=== PATIENT | female | born 1960 | race Caucasian/White ===

== ENCOUNTER 2017-02-14 00:01 | Emergency (ER) | payer MEDICAID ==
[~2017-02-14] VITALS: Ht 172.7 cm; Wt 86.4 kg
[~2017-02-14 00:01] MED LIST: ASPI-611 PO; ATOR10TA70 PO; CARV3.122 PO; CLIN-80 PO; CYCL-1 PO; FLO0.4C PO; HYDR-3972 PO; PANT40TA4 PO
[2017-02-14 00:03] VITALS: BP 151/95
== END 2017-02-14 01:46 | disposition left against medical advice (07) ==
LOC: ER 00:01
DX: M79.671 Pain in right foot (principal); Z53.21 Procedure and treatment not carried out due to patient leaving prior to being seen by health care provider

== ENCOUNTER 2017-02-16 17:33 | Emergency (ER) | payer MEDICAID ==
[~2017-02-16] VITALS: Ht 170.2 cm; Wt 84.0 kg
[2017-02-16] MEDS ORDERED: BUPIVAcaine/PF 2.5 mg/ml (0.25%) 30ml vial IJ ONE (17:40)
[2017-02-16] MEDS ORDERED: CLIN-80 PO (17:47)
[2017-02-16 17:56] VITALS: BP 125/79
== END 2017-02-16 18:07 | disposition home or self-care (01) ==
LOC: ER 17:33
DX: L08.9 Local infection of the skin and subcutaneous tissue, unspecified (principal); B95.8 Unspecified staphylococcus as the cause of diseases classified elsewhere; I25.10 Atherosclerotic heart disease of native coronary artery without angina pectoris; I25.2 Old myocardial infarction; G89.29 Other chronic pain; F12.10 Cannabis abuse, uncomplicated; Z88.2 Allergy status to sulfonamides; Z79.2 Long term (current) use of antibiotics; Z79.899 Other long term (current) drug therapy; Z79.82 Long term (current) use of aspirin
CPT/HCPCS: 99283

== ENCOUNTER 2017-06-06 20:47 | Emergency (ER) | payer MEDICAID ==
[~2017-06-06] VITALS: Ht 172.7 cm; Wt 81.8 kg
[2017-06-06] MEDS ORDERED: ipratropium/albuterol 3ml nebule NEB ONE (21:50)
[2017-06-06 22:00] LABS: BASOPHILS % (AUTO) 0.3 % (0-1); EOSINOPHILS # (AUTO) 0.3 X10'3 (0-0.9); EOSINOPHILS % (AUTO) 2.8 % (0-6); HEMATOCRIT 44.8 % (35.0-45.0); HEMOGLOBIN 15.2 g/dl (12.0-16.0); LYMPHOCYTES # (AUTO) 2.8 X10'3 (1.1-4.8); LYMPHOCYTES % (AUTO) 30.8 % (21-51); MEAN CORPUSCULAR HEMOGLOBIN 30.4 PG (27.0-31.0); MEAN CORPUSCULAR VOLUME 89.5 FL (78-98); MEAN PLATELET VOLUME 7.5 FL (7.4-10.4); MONOCYTES # (AUTO) 0.6 X10'3 (0-0.9); MONOCYTES % (AUTO) 6.4 % (2-12); NEUTROPHILS # (AUTO) 5.5 X10'3 (1.8-7.7); NEUTROPHILS % (AUTO) 59.7 % (42-75); PLATELET COUNT 288 X10'3 (140-440); RED CELL DISTRIBUTION WIDTH 15.5 % (11.5-14.5); WHITE BLOOD COUNT 9.2 X10'3 (4.5-11.0)
[2017-06-06 22:06] LABS: PARTIAL THROMBOPLASTIN TIME 27 SECONDS (22-32); PROTHROMBIN TIME 10.4 SECONDS (9.0-12.0)
[2017-06-06 22:24] LABS: ALANINE AMINOTRANSFERASE 26 U/L (12-78); ALBUMIN 3.2 G/DL (3.4-5.0); ALBUMIN/GLOBULIN RATIO 0.7 (1.1-1.5); ALKALINE PHOSPHATASE 120 IU/L (46-116); ANION GAP 12 (8-16); ASPARTATE AMINO TRANSFERASE 22 U/L (10-37); BILIRUBIN,TOTAL 0.4 MG/DL (0.1-1.0); BLOOD UREA NITROGEN 11 MG/DL (7-18); BUN/CREATININE RATIO 13.4 (6.6-38.0); CALCIUM 8.7 MG/DL (8.5-10.1); CHLORIDE 105 MMOL/L (99-107); CREATININE 0.82 MG/DL (0.40-0.90); POTASSIUM 3.5 MMOL/L (3.5-5.1); SODIUM 141 MMOL/L (135-145); TOTAL CARBON DIOXIDE 24.3 MMOL/L (24-32); TOTAL PROTEIN 7.6 G/DL (6.4-8.2); eGFR 72 ML/MIN
[2017-06-06 22:28] LABS: GLUCOSE 138 MG/DL (70-104)
[2017-06-06] MEDS ORDERED: ALBU18HF2 INH (23:04)
[2017-06-06] MEDS ORDERED: PRED50TA PO (23:04)
[2017-06-06] MEDS ORDERED: DEXT15LI29 PO (23:04)
[2017-06-06] MEDS ORDERED: AZIT-57 PO (23:04)
[2017-06-06] MEDS ORDERED: NAPR-56 PO (23:04)
[2017-06-06 23:10] VITALS: BP 117/63
== END 2017-06-06 23:11 | disposition home or self-care (01) ==
LOC: ER 20:48
DX: J44.1 Chronic obstructive pulmonary disease with (acute) exacerbation (principal); I25.10 Atherosclerotic heart disease of native coronary artery without angina pectoris; I25.2 Old myocardial infarction; G89.29 Other chronic pain; F17.210 Nicotine dependence, cigarettes, uncomplicated; F12.10 Cannabis abuse, uncomplicated; Z98.890 Other specified postprocedural states; Z88.2 Allergy status to sulfonamides; Z79.82 Long term (current) use of aspirin; Z79.899 Other long term (current) drug therapy; Z56.0 Unemployment, unspecified
CPT/HCPCS: 36415; 71045; 80053; 84484; 85025; 85610; 85730; 93005; 94640; 94760; 99285

== ENCOUNTER 2018-10-21 00:10 | Emergency (ER) | payer MEDICAID ==
[~2018-10-21] VITALS: Ht 172.7 cm; Wt 91.1 kg
[~2018-10-21 00:10] MED LIST changes: +ALBU18HF2 INH; -CLIN-80 PO; +CLIN-96 PO; +DEXT15LI29 PO; +PRED50TA PO
[2018-10-21 00:19] VITALS: BP 137/68
[2018-10-21] MEDS ORDERED: TETanus/Pertussis (Acell)/Diphther VAC/PF (Tdap-Adult) 0.5ml syringe IM ONE (00:55)
== END 2018-10-21 01:16 | disposition home or self-care (01) ==
LOC: ER 00:10
DX: S91.332A Puncture wound without foreign body, left foot, initial encounter (principal); I25.10 Atherosclerotic heart disease of native coronary artery without angina pectoris; I25.2 Old myocardial infarction; G89.29 Other chronic pain; F12.90 Cannabis use, unspecified, uncomplicated; Z86.14 Personal history of Methicillin resistant Staphylococcus aureus infection; Z98.890 Other specified postprocedural states; Z56.0 Unemployment, unspecified; Z88.2 Allergy status to sulfonamides; Z79.82 Long term (current) use of aspirin; Z79.899 Other long term (current) drug therapy; W22.8XXA Striking against or struck by other objects, initial encounter; Y93.89 Activity, other specified; Y92.89 Other specified places as the place of occurrence of the external cause; Y99.8 Other external cause status
CPT/HCPCS: 90471; 99283

== ENCOUNTER 2019-08-30 06:20 | Emergency (ER) | payer MEDICAID ==
[~2019-08-30] VITALS: Ht 170.2 cm; Wt 90.6 kg
[~2019-08-30 06:20] MED LIST changes: -CLIN-96 PO; +CLIN-97 PO
[2019-08-30 06:48] VITALS: BP 119/67
== END 2019-08-30 08:24 | disposition home or self-care (01) ==
LOC: ER 06:20
DX: M25.572 Pain in left ankle and joints of left foot (principal); I25.10 Atherosclerotic heart disease of native coronary artery without angina pectoris; I25.2 Old myocardial infarction; G89.29 Other chronic pain; F17.210 Nicotine dependence, cigarettes, uncomplicated; F12.90 Cannabis use, unspecified, uncomplicated; Z86.14 Personal history of Methicillin resistant Staphylococcus aureus infection; Z85.9 Personal history of malignant neoplasm, unspecified; Z98.890 Other specified postprocedural states; Z56.0 Unemployment, unspecified; Z88.2 Allergy status to sulfonamides; Z79.82 Long term (current) use of aspirin; Z79.2 Long term (current) use of antibiotics; Z79.899 Other long term (current) drug therapy
CPT/HCPCS: 73600; 99284

== ENCOUNTER 2019-10-08 18:35 | Emergency (ER) | payer MEDICAID ==
[~2019-10-08] VITALS: Ht 170.2 cm; Wt 89.5 kg
[2019-10-08 18:36] VITALS: BP 121/70
[2019-10-08] MEDS ORDERED: ondansetron 4mg rapidly disintigrating tab PO ONE (18:50)
[2019-10-08] MEDS ORDERED: HYDROcodone/acetaminophen 5mg/325mg tablet PO ONE (18:50)
[2019-10-08] MEDS ORDERED: ONDA4TAB6 PO (19:10)
[2019-10-08] MEDS ORDERED: HYDR-4383 PO (19:10)
== END 2019-10-08 19:28 | disposition home or self-care (01) ==
LOC: ER 18:36
DX: M79.672 Pain in left foot (principal); I25.10 Atherosclerotic heart disease of native coronary artery without angina pectoris; I25.2 Old myocardial infarction; G89.29 Other chronic pain; F12.90 Cannabis use, unspecified, uncomplicated; Z86.14 Personal history of Methicillin resistant Staphylococcus aureus infection; Z98.890 Other specified postprocedural states; Z56.0 Unemployment, unspecified; Z88.2 Allergy status to sulfonamides; Z79.82 Long term (current) use of aspirin; Z79.899 Other long term (current) drug therapy
CPT/HCPCS: 73610; 73630; 99284

== ENCOUNTER 2020-04-28 19:59 | Emergency (ER) | payer MEDICAID ==
[~2020-04-28] VITALS: Ht 170.2 cm; Wt 92.3 kg
[~2020-04-28 19:59] MED LIST changes: +DEXT15LI PO; -DEXT15LI29 PO; +HYDR-4383 PO; +ONDA4TAB6 PO; -PANT40TA4 PO; +PANT40TA54 PO
[2020-04-28 20:31] VITALS: BP 118/74
[2020-04-28] MEDS ORDERED: diphenhydrAMINE 25mg capsule PO ONE (22:15)
== END 2020-04-28 22:43 | disposition home or self-care (01) ==
LOC: ER 20:00
DX: S41.102A Unspecified open wound of left upper arm, initial encounter (principal); I25.10 Atherosclerotic heart disease of native coronary artery without angina pectoris; I25.2 Old myocardial infarction; G89.29 Other chronic pain; F12.90 Cannabis use, unspecified, uncomplicated; Z86.14 Personal history of Methicillin resistant Staphylococcus aureus infection; Z85.9 Personal history of malignant neoplasm, unspecified; Z56.0 Unemployment, unspecified; Z79.2 Long term (current) use of antibiotics; Z79.82 Long term (current) use of aspirin; Z79.899 Other long term (current) drug therapy; Z88.2 Allergy status to sulfonamides; W22.8XXA Striking against or struck by other objects, initial encounter; Y93.89 Activity, other specified; Y92.89 Other specified places as the place of occurrence of the external cause; Y99.8 Other external cause status
CPT/HCPCS: 10160; 99284; Q0163

== ENCOUNTER 2021-05-29 17:18 | Emergency (ER) | payer MEDICAID ==
[~2021-05-29] VITALS: Ht 170.2 cm; Wt 81.8 kg
[2021-05-29 17:37] VITALS: BP 111/65
[2021-05-29] MEDS ORDERED: DOXYCYCLINE 100MG CAPSULE PO STA (18:15)
[2021-05-29] MEDS ORDERED: DOXY100C76 PO (18:21)
== END 2021-05-29 18:30 | disposition home or self-care (01) ==
LOC: ER 17:19
DX: H00.014 Hordeolum externum left upper eyelid (principal); H02.844 Edema of left upper eyelid; I25.10 Atherosclerotic heart disease of native coronary artery without angina pectoris; I25.2 Old myocardial infarction; G89.29 Other chronic pain; F17.200 Nicotine dependence, unspecified, uncomplicated; Z86.14 Personal history of Methicillin resistant Staphylococcus aureus infection; Z86.19 Personal history of other infectious and parasitic diseases; Z85.9 Personal history of malignant neoplasm, unspecified; Z56.0 Unemployment, unspecified; Z98.890 Other specified postprocedural states; Z88.2 Allergy status to sulfonamides; Z79.82 Long term (current) use of aspirin; Z79.899 Other long term (current) drug therapy; Z79.2 Long term (current) use of antibiotics
CPT/HCPCS: 99283

== ENCOUNTER 2021-06-30 18:03 | Emergency (ER) | payer MEDICAID ==
[~2021-06-30] VITALS: Ht 170.2 cm; Wt 81.8 kg
[2021-06-30 18:04] VITALS: BP 137/70
[2021-06-30] MEDS ORDERED: PRED20TA PO (18:54)
[2021-06-30] MEDS ORDERED: GUAI120L55 PO (18:54)
[2021-06-30] MEDS ORDERED: AMOX-117 PO (18:54)
[2021-06-30] MEDS ORDERED: amox tr/potassium clavulanate 875/125mg TAB PO ONE (18:55)
[2021-06-30] MEDS ORDERED: predniSONE 20 mg tablet PO ONE (18:55)
== END 2021-06-30 19:17 | disposition home or self-care (01) ==
LOC: ER 18:04
DX: J20.9 Acute bronchitis, unspecified (principal); I25.10 Atherosclerotic heart disease of native coronary artery without angina pectoris; I25.2 Old myocardial infarction; F17.200 Nicotine dependence, unspecified, uncomplicated; F12.90 Cannabis use, unspecified, uncomplicated; Z86.14 Personal history of Methicillin resistant Staphylococcus aureus infection; Z85.9 Personal history of malignant neoplasm, unspecified; Z56.0 Unemployment, unspecified; Z88.6 Allergy status to analgesic agent; Z79.82 Long term (current) use of aspirin; Z79.2 Long term (current) use of antibiotics; Z79.899 Other long term (current) drug therapy
CPT/HCPCS: 99283; J7512

== ENCOUNTER 2022-04-17 19:47 | Emergency (ER) | payer MEDICAID ==
[~2022-04-17] VITALS: Ht 170.2 cm; Wt 81.8 kg
[~2022-04-17 19:47] MED LIST changes: +GUAI120L55 PO
[2022-04-17 20:10] VITALS: BP 129/81
[2022-04-17 20:50] LABS: BASOPHILS % (AUTO) 0.3 % (0-1); EOSINOPHILS # (AUTO) 0.1 X10'3 (0-0.9); EOSINOPHILS % (AUTO) 0.8 % (0-6); HEMATOCRIT 51.5 % (35.0-45.0); HEMOGLOBIN 17.1 g/dl (12.0-16.0); LYMPHOCYTES # (AUTO) 1.6 X10'3 (1.1-4.8); LYMPHOCYTES % (AUTO) 15.3 % (21-51); MEAN CORPUSCULAR HEMOGLOBIN 30.3 PG (27.0-31.0); MEAN CORPUSCULAR HGB CONC 33.2 g/dL (33.0-36.5); MEAN CORPUSCULAR VOLUME 91.2 FL (78-98); MEAN PLATELET VOLUME 7.4 FL (7.4-10.4); MONOCYTES # (AUTO) 0.5 X10'3 (0-0.9); MONOCYTES % (AUTO) 5.2 % (2-12); NEUTROPHILS # (AUTO) 8.1 X10'3 (1.8-7.7); NEUTROPHILS % (AUTO) 78.4 % (42-75); PLATELET COUNT 268 X10'3 (140-440); RED BLOOD COUNT 5.65 X10'6 (4.20-5.60); RED CELL DISTRIBUTION WIDTH 14.7 % (11.5-14.5); WHITE BLOOD COUNT 10.4 X10'3 (4.5-11.0)
[2022-04-17 21:03] LABS: ALANINE AMINOTRANSFERASE 28 U/L (12-78); ALBUMIN 3.7 G/DL (3.4-5.0); ALBUMIN/GLOBULIN RATIO 0.8 (1.1-1.5); ALKALINE PHOSPHATASE 105 IU/L (46-116); ANION GAP 8 (8-16); ASPARTATE AMINO TRANSFERASE 25 U/L (10-37); BILIRUBIN,TOTAL 0.7 MG/DL (0.1-1.0); BLOOD UREA NITROGEN 11 MG/DL (7-18); BUN/CREATININE RATIO 13.8 (6.6-38.0); CALCIUM 9.3 MG/DL (8.5-10.1); CHLORIDE 106 MMOL/L (99-107); LIPASE 521 U/L (73-393); POTASSIUM 4.1 MMOL/L (3.5-5.1); SODIUM 140 MMOL/L (135-145); TOTAL CARBON DIOXIDE 26.3 MMOL/L (24-32); TOTAL PROTEIN 8.2 G/DL (6.4-8.2); eGFR 73 ML/MIN
[2022-04-17 21:11] LABS: GLUCOSE 121 MG/DL (70-104)
== END 2022-04-18 00:38 | disposition left against medical advice (07) ==
LOC: ER 19:48
DX: R11.10 Vomiting, unspecified (principal); Z53.21 Procedure and treatment not carried out due to patient leaving prior to being seen by health care provider
CPT/HCPCS: 36415; 80053; 83690; 85025; 99281

== ENCOUNTER 2022-10-28 05:01 | Emergency (ER) | payer MEDICAID ==
[~2022-10-28] VITALS: Ht 170.2 cm; Wt 81.8 kg
[2022-10-28 05:14] VITALS: BP 157/91; PULSE 73; TEMP 97.9; O2SAT 99
[2022-10-28] MEDS ORDERED: methylPREDNISolone sod succ 125mg/2ml vial IM ONE (05:30)
[2022-10-28] MEDS ORDERED: ketorolac tromethamine 15mg/ml inj. IM ONE (05:30)
[2022-10-28] MEDS ORDERED: METH4TAB81 PO (05:30)
[2022-10-28] MEDS ORDERED: NAPR-56 PO (05:30)
[2022-10-28 07:31] VITALS: RESP 16
== END 2022-10-28 08:29 | disposition home or self-care (01) ==
LOC: ER 05:01
DX: S83.92XA Sprain of unspecified site of left knee, initial encounter (principal); M25.562 Pain in left knee; I25.10 Atherosclerotic heart disease of native coronary artery without angina pectoris; I25.2 Old myocardial infarction; G89.29 Other chronic pain; F12.90 Cannabis use, unspecified, uncomplicated; Z56.0 Unemployment, unspecified; Z79.899 Other long term (current) drug therapy; Z79.2 Long term (current) use of antibiotics; Z88.2 Allergy status to sulfonamides; Z85.048 Personal history of other malignant neoplasm of rectum, rectosigmoid junction, and anus; W18.30XA Fall on same level, unspecified, initial encounter; Z91.81 History of falling; Y93.89 Activity, other specified; Y92.89 Other specified places as the place of occurrence of the external cause; Y99.8 Other external cause status
CPT/HCPCS: 73564; 96372; 99284; J1885; J2930

== ENCOUNTER 2024-02-12 10:19 | Emergency (ER) | payer MEDICAID ==
[~2024-02-12] VITALS: Ht 170.2 cm; Wt 87.5 kg
[~2024-02-12 10:19] MED LIST changes: +METH4TAB81 PO
[2024-02-12 10:25] VITALS: BP 163/86; PULSE 79; TEMP 98.1; O2SAT 100
[2024-02-12] MEDS: ketorolac trometh 15mg/ml vial 15 MG/ML ML IM ONE (12:07)
[2024-02-12 12:13] VITALS: RESP 16
[2024-02-12] MEDS: ketorolac trometh 30MG/ML vial 30 MG/ML VIAL IM ONE (12:13)
== END 2024-02-12 12:18 | disposition home or self-care (01) ==
LOC: ER 10:19
DX: M25.562 Pain in left knee (principal); I25.10 Atherosclerotic heart disease of native coronary artery without angina pectoris; F12.90 Cannabis use, unspecified, uncomplicated; Z88.2 Allergy status to sulfonamides; Z98.890 Other specified postprocedural states; Z79.82 Long term (current) use of aspirin
CPT/HCPCS: 73564; 96372; 99283; J1885

== ENCOUNTER 2024-02-17 07:38 | Day surgery (SDC) | payer MEDICAID ==
[~2024-02-17] VITALS: Ht 170.2 cm; Wt 89.3 kg
[2024-02-17] VITALS (13 sets, daily range): BP systolic 124–161; BP diastolic 68–92; PULSE 62–76; RESP 16; TEMP 97.6; O2SAT 96–98
[2024-02-17] MEDS ORDERED: nitroGLYCERIN 0.4mg SUBLingual tab SL PRN ×2 (08:05→12:20)
[2024-02-17 08:41] LABS: HEMATOCRIT 43.4 % (35.0-45.0); HEMOGLOBIN 14.5 g/dl (12.0-16.0); MEAN CORPUSCULAR HEMOGLOBIN 30.7 PG (27.0-31.0); MEAN CORPUSCULAR HGB CONC 33.5 g/dL (33.0-36.5); MEAN CORPUSCULAR VOLUME 91.6 FL (78-98); PLATELET COUNT 297 X10'3 (140-440); RED BLOOD COUNT 4.73 X10'6 (4.20-5.60); WHITE BLOOD COUNT 6.2 X10'3 (4.5-11.0)
[2024-02-17 08:42] LABS: BASOPHILS % (AUTO) 0.6 % (0-1); EOSINOPHILS # (AUTO) 0.2 X10'3 (0-0.9); EOSINOPHILS % (AUTO) 3.6 % (0-6); LYMPHOCYTES # (AUTO) 2.3 X10'3 (1.1-4.8); LYMPHOCYTES % (AUTO) 36.5 % (21-51); MEAN PLATELET VOLUME 7.5 FL (7.4-10.4); MONOCYTES # (AUTO) 0.5 X10'3 (0-0.9); MONOCYTES % (AUTO) 8.4 % (2-12); NEUTROPHILS # (AUTO) 3.2 X10'3 (1.8-7.7); NEUTROPHILS % (AUTO) 50.9 % (42-75)
[2024-02-17 08:54] LABS: ALBUMIN 2.8 G/DL (3.4-5.0); ANION GAP 9 (8-16); BLOOD UREA NITROGEN 14 MG/DL (7-18); BUN/CREATININE RATIO 18.9 (10.0-20.0); CHLORIDE 110 MMOL/L (99-107); CREATININE 0.74 MG/DL (0.40-0.90); GLUCOSE 136 MG/DL (70-104); POTASSIUM 3.8 MMOL/L (3.5-5.1); SODIUM 144 MMOL/L (135-145); TOTAL CARBON DIOXIDE 24.8 MMOL/L (24-32); eCRCL 77 ML/MIN; eGFR 80 ML/MIN
[2024-02-17 08:58] LABS: APTT 26 SECONDS (22-32); PROTHROMBIN TIME 10.9 SECONDS (9.0-12.0)
[2024-02-17] MEDS ORDERED: NO HOME MEDS (09:00)
[2024-02-17] MEDS: diphenhydrAMINE 25mg capsule PO PRN (09:58)
[2024-02-17] MEDS: LORazepam 0.5 MG tablet PO PRN (09:58)
[2024-02-17] MEDS: normal saline 1,000 ML IV SCH (09:59)
[2024-02-17] MEDS ORDERED: iohexol 350 MG/ML 50ML vial IV ONE (10:17)
[2024-02-17] MEDS ORDERED: iohexol 350MG/ML 100ml bottle IV ONE (10:17)
[2024-02-17] MEDS ORDERED: LIDOcaine 1% 30ml preserv. free vial ONE (10:17)
[2024-02-17] MEDS ORDERED: fentaNYL/PF 50MCG/1 ML 2ML syringe ONE (10:17)
[2024-02-17] MEDS ORDERED: midazolam 1 mg/ML 2ml injection ONE (10:17)
[2024-02-17] MEDS ORDERED: normal saline 1000ml 1,000 ML IV SCH (12:15)
[2024-02-17] MEDS ORDERED: ondansetron/PF 4mg/2ml inj IV PRN (12:15)
[2024-02-17] MEDS ORDERED: HYDROcodone/acetaminophen 5mg/325mg tablet PO PRN (12:20)
[2024-02-17] MEDS ORDERED: proCHLORperazine 10 MG/2 ml inj IV PRN (12:20)
[2024-02-17] MEDS ORDERED: OXAZEpam 15mg capsule PO PRN (12:20)
[2024-02-17] MEDS: HYDROcodone/acetaminophen 10/325mg tab PO PRN (14:23)
== END 2024-02-17 18:50 | disposition home or self-care (01) ==
LOC: SSTAY O 07:38
PROVIDERS: ATTEND Internal Medicine Cardiovascular Disease
DX: R94.39 Abnormal result of other cardiovascular function study (principal); I25.10 Atherosclerotic heart disease of native coronary artery without angina pectoris; Z79.01 Long term (current) use of anticoagulants; I25.2 Old myocardial infarction
CPT/HCPCS: 36415; 71046; 80048; 85025; 85610; 85730; 93005; 93458; 99152; J1644; J2003; J2250; J3010; J7030; Q0163; Q9967; 99153; A4314; A6258; C1760

== ENCOUNTER 2024-10-28 04:53 | Emergency (ER) | payer MEDICAID ==
[~2024-10-28] VITALS: Ht 170.2 cm; Wt 75.0 kg
[~2024-10-28 04:53] MED LIST changes: -ALBU18HF2 INH; -ASPI-611 PO; -ATOR10TA70 PO; -CARV3.122 PO; -CLIN-97 PO; -CYCL-1 PO; -DEXT15LI PO; -FLO0.4C PO; -GUAI120L55 PO; -HYDR-3972 PO; -HYDR-4383 PO; -METH4TAB81 PO; +NO HOME MEDS; -ONDA4TAB6 PO; -PANT40TA54 PO; -PRED50TA PO
[2024-10-28 05:00] VITALS: BP 148/66; PULSE 82; RESP 20; TEMP 98; O2SAT 99
--- NOTE | 2024-10-28 05:18 | Physician Documentation ---
History of Present Illness ~ Chief Complaint: Leg Pain Stated Complaint: LEG PUNCTURE Time Seen by MD: 05:15 Primary Medical Doctor: Vicky hunt [facility] Patient presents to the emergency room with chief complaint of sliver in her posterior left leg. She states she stepped on a branch in his swung up and stabbed her leaving a splinter. She would not have a pair of tweezers to pull it out therefore she is here. Tetanus reported to be up-to-date Tetanus witin 5 years: Yes (2020) Medication Reconciliation Allergies: Coded Allergies: Sulfa (Sulfonamide Antibiotics) (Verified Allergy, Severe, 10/08/19) Miscellaneous Medications Home Med List (No Home Medications), (Reported) Past Medical History Past Medical History: Coronary Artery Disease, Myocardial Infarction, Chronic Pain, Cellulitis, MRSA Abscess, *CANCER* Past Surgical History: orthopedic surgeries, other Other Past Surgical History: Eye surgery Alcohol Use: None Drug Use: marijuana Lives with: Family Lives In: Home Occupation: unemployed Review of Systems ROS All review of systems negative except as per HPI Physical Exam Vital Signs: Temperature: 98.0, Heart Rate: 82, Respiratory Rate: 20, BP: 148/66, Pulse Oximetry: 99, Weight: 75.000 Oxygen Flow Rate: 0 Physical Exam General: Patient is awake, alert, oriented x4 in no acute distress and well appearing.~ Head: Normocephalic and atraumatic. Eyes: Conjunctival normal. EOMI. PERRL. ENT: Mucous membranes moist. Neck: Supple, trachea is midline. Chest: Clear to auscultation bilaterally without rales, rhonchi, or wheezes. There is no accessory muscle use or retractions. Cardiac: RRR without murmurs, gallops, or rubs. Extremities: Splinter sticking out of patient's posterior left calf. No evidence of infection Procedures Procedures Splinter removal: Status post informed verbal consent patient's wound was cleaned and forceps used to pull 0.5 cm splinter from posterior calf in its entirety. Wound care provided as well as bandage. Progress Results/Orders Results/Orders Vital Signs 10/28/24 05:00 Temp 98.0 Pulse 82 Resp 20 B/P (MAP) 148/66 Pulse Ox 99 O2 Flow Rate 0 Medical Decision Making Findings Patient presented to the emergency room as per HPI with a splinter in her leg. Splinter removed. I do not feel she requires oral antibiotics at this time. Wound care discussed. ER precautions regarding signs of infection discussed. Departure Disposition: HOME / SELF CARE / HOMELESS Impression: Primary Impression: Splinter Condition: Improved Discharge Instructions: Laceration Care, Adult, [id number] Additional Instructions: Return for signs of infection. Keep covered with antibiotic ointment. Referrals: NO PRIMARY CARE PROVIDER (PCP) Education Educated: Patient Educated regarding: diagnosis, treatment, need for follow up Signature Scribe Signature: No scribe Attestation: The note accurately reflects work and decisions made by me.Cruzito Mae MD 10/28/24 05:17 CRUZITO MAE MD Oct 28, 2024 05:18
== END 2024-10-28 05:42 | disposition home or self-care (01) ==
LOC: ER 04:54
DX: S80.852A Superficial foreign body, left lower leg, initial encounter (principal); I25.10 Atherosclerotic heart disease of native coronary artery without angina pectoris; F12.90 Cannabis use, unspecified, uncomplicated; I25.2 Old myocardial infarction; Z88.2 Allergy status to sulfonamides; W22.8XXA Striking against or struck by other objects, initial encounter; Y93.89 Activity, other specified; Y92.89 Other specified places as the place of occurrence of the external cause; Y99.8 Other external cause status
CPT/HCPCS: 99284